=== PATIENT | male | born 1955 ===

== ENCOUNTER 2018-03-14 20:52 | Emergency (ER) | payer MEDICARE, MEDICAID ==
[2018-03-14 21:10] VITALS: TEMP 99.5
[2018-03-14] MEDS ORDERED: Sodium Chloride 0.9% 1,000 ML IV STA (21:35)
--- NOTE | 2018-03-14 21:42 | ED PDOC ---
HPI: General Adult Time Seen by Provider: 03/14/18 21:20 Chief Complaint (Nursing): ENT Problem Chief Complaint (Provider): Back and Knee pain History Per: Patient, Family (son) History/Exam Limitations: no limitations Onset/Duration Of Symptoms: Days (x 1) Current Symptoms Are (Timing): Still Present Additional Complaint(s): 62 year old male with a history of DM, HTN, UT and CVA presents to the ED for evaluation. Son is at bedside and provides history. He reports that patient has chronic back and bilateral knee pain. Son does not know the name of the medications, but reports that he took medication for pain and fell asleep this morning for a few hours. He believes that the patient took two more doses of the medication during the day as well. When the son returned in the evening, he found the patient complaining of nausea and actively heaving. Although this c onfused state is rare, the son reports a similar episodes in the past multiple times due after he takes some pain medicine which the son does not know. He has left lower extremity weakness as a deficit from the stroke. Patient currently has no medical complaints; no pain. Denies vomiting, diarrhea, abdominal pain and other complaints. PMD: Dr. Justin Past Medical History Reviewed: Historical Data, Nursing Documentation, Vital Signs Vital Signs: Last Vital Signs Temp 99.5 F 03/14/18 21:07 Pulse 114 H 03/14/18 21:07 Resp 20 03/14/18 21:07 BP 151/93 H 03/14/18 21:07 Pulse Ox 100 03/14/18 21:07 - Medical History PMH: CAD, Diabetes, HTN, Hypercholesterolemia Denies: HIV - Surgical History Surgical History: CABG, Coronary Stent Denies: Pacemaker - Family History Family History: States: Unknown Family Hx - Living Arrangements Living Arrangements: With Family - Home Medications Home Medications: Ambulatory Orders Medication Instructions Recorded Aspirin [Ecotrin] 81 mg PO DAILY 06/16/13 Atorvastatin Calcium [Lipitor] 80 mg PO HS #0 tab 11/15/14 Clopidogrel [Plavix] 75 mg PO DAILY #0 tab 11/15/14 Difluprednate [Durezol 5 ml] 1 drop RIGHTEYE QID #0 emu 11/15/14 Lisinopril 10 mg PO DAILY #0 tab 09/16/15 Lorazepam 0.5 mg PO TID PRN #0 tab 11/15/14 MetFORMIN [glucoPHAGE] 1,000 mg PO BID #0 tab 11/15/14 Metoprolol Tartrate 50 mg PO BID #0 tab 11/15/14 Naproxen 250 mg PO BID PRN #0 tab 11/15/14 Nepafenac [Ilevro] 1 drop RIGHTEYE QAM #0 dyan 11/15/14 Pregabalin [Lyrica] 200 mg PO BID #0 cap 11/15/14 Ropinirole HCl [Requip] 0.5 mg PO HS #0 tab 11/15/14 SITagliptin [Januvia] 100 mg PO DAILY #0 tab 11/15/14 Sertraline Hydrochloride 100 mg PO Q12H #0 tab 11/15/14 Zolpidem Tartrate [Ambien] 10 mg PO HS PRN #0 tab 11/15/14 traMADol [Ultram] 50 mg PO QID PRN #0 tab 11/15/14 - Allergies Allergies/Adverse Reactions: Allergies Allergy/AdvReac Type Severity Reaction Status Date / Time No Known Allergies Allergy Verified 11/13/14 17:32 Review of Systems ROS Statement: Except As Marked, All Systems Reviewed And Found Negative Gastrointestinal: Positive for: Nausea Musculoskeletal: Positive for: Back Pain, Leg Pain Neurological: Positive for: Confusion Physical Exam - Reviewed Nursing Documentation Reviewed: Yes Vital Signs Reviewed: Yes - Physical Exam Appears: Positive for: Non-toxic, No Acute Distress Head Exam: Positive for: ATRAUMATIC, NORMAL INSPECTION, NORMOCEPHALIC Skin: Positive for: Normal Color, Warm, Dry Eye Exam: Positive for: EOMI, Normal appearance, PERRL ENT: Positive for: Normal ENT Inspection. Negative for: Nasal Congestion Neck: Positive for: Normal, Painless ROM, Supple Cardiovascular/Chest: Positive for: Regular Rate, Rhythm. Negative for: Murmur Respiratory: Positive for: Normal Breath Sounds. Negative for: Respiratory Distress Gastrointestinal/Abdominal: Positive for: Normal Exam (large surgical scar present on abdomen), Soft. Negative for: Tenderness Back: Positive for: Normal Inspection. Negative for: L CVA Tenderness, R CVA Tenderness Extremity: Positive for: Other (3/5 strength in left leg). Negative for: Normal ROM, Tenderness, Pedal Edema Neurologic/Psych: Positive for: Alert, nut former II-XII, Oriented (x 3; communicating fully). Negative for: Aphasia, Facial Droop - Laboratory Results Result Diagrams: 03/14/18 21:33 03/14/18 21:33 Lab Results: no acute - ECG O2 Sat by Pulse Oximetry: 100 (RA) Pulse Ox Interpretation: Normal - Radiology X-Ray: Interpreted by Me, Viewed By Me X-Ray Interpretation: No Acute Disease - CT Scan/US ct Other Rad Studies (CT/US): Read By Radiologist Other Rad Interpretation: no acute - Progress ED Course And Treament: 2255: Stable. AAOx3. Pain free. Tolerated PO. Son states this confusion is common with him after he takes some unknown pain meds. Once the meds prieto off he is back to baseline. Currently back to baseline and comfortable going home. Son comfortable taking him home. Ambulated at baseline. Medical Decision Making Medical Decision Makin:34 Initial Plan: --CT head --Acetaminophen --Alcohol serum --Lipase --UDS --Salicylate --Troponin --Urine dip --CBC --CMP --PTT --PT --CXR --Glucose POC --NS IV --Tylenol 650 mg PO --Zofran 4 mg IV Scribe Attestation: Documented by Noelle Uiras acting as a scribe for Polo Carrington MD Provider Scribe Attestation: All medical record entries made by the Scribe were at my direction and personally dictated by me. I have reviewed the chart and agree that the record accurately reflects my personal performance of the history, physical exam, medical decision making, and the department course for this patient. I have also personally directed, reviewed, and agree with the discharge instructions and disposition. Disposition - Clinical Impression Clinical Impression: Confusion - Patient ED Disposition Is Patient to be Admitted: No Counseled Patient/Family Regarding: Studies Performed, Diagnosis, Need For Followup - Disposition Referrals: [facility] [Outside] - 03/15/18 Disposition: Routine/Home Disposition Time: 23:00 Condition: STABLE Additional Instructions: Return if not better in 3 days. Instructions: Altered Mental Status (DC) Forms: [facility] (Bruneian) Print Language: CANADIAN
[2018-03-14 22:28] LABS: BASO # 0.1 K/uL (0.0-0.2); EOS # 0.1 K/uL (0.0-0.7); EOS % 1.9 % (0.0-4.0); LYMPH # 1.6 K/uL (1.0-4.3); LYMPH % 26.9 % (20.0-40.0); MEAN CELL VOLUME 89.3 fl (80.0-94.0); MEAN CORPUSCULAR HGB CONC 33.6 g/dL (33.0-37.0); MEAN PLATELET VOLUME 10.1 fl (7.2-11.7); MONO # 0.5 K/uL (0.0-0.8); MONO % 8.9 % (0.0-10.0); NEUT # 3.6 K/uL (1.8-7.0); NEUT % 61.3 % (50.0-75.0); RBC 4.65 Mil/uL (4.40-5.90); RED CELL DISTRIBUTION WIDTH 15.4 % (11.5-14.5); WHITE BLOOD COUNT 5.8 K/uL (4.8-10.8)
[2018-03-14 22:35] LABS: INR 1.1; PROTHROMBIN TIME 12.9 Seconds (9.8-13.1)
[2018-03-14 22:37] LABS: ACETAMINOPHEN < 10.0 ug/ml (10.0-30.0); SALICYLATE < 1.0 mg/dl
[2018-03-14 22:39] LABS: ALB/GLOB RATIO 1.4 (1.0-2.1); ALBUMIN 4.8 g/dL (3.5-5.0); ALT/SGPT 39 U/L (21-72); AST/SGOT 33 U/L (17-59); BLOOD UREA NITROGEN 15 mg/dl (9-20); CALCIUM 9.7 mg/dL (8.4-10.2); GFR NON-AFRICAN AMERICAN > 60; LIPASE 95 U/L (23-300)
[2018-03-14 22:45] VITALS: BP 127/83; PULSE 100; RESP 18
[2018-03-14 22:53] VITALS: O2SAT 100
[2018-03-14 23:14] LABS: BARBITURATES, UR NEGATIVE (NEGATIVE); BENZODIAZEPINES, UR POSITIVE (NEGATIVE); OPIATES, UR NEGATIVE (NEGATIVE); PHENCYCLIDINE, UR NEGATIVE (NEGATIVE)
--- NOTE | 2018-03-15 07:23 | CARD ---
APPROVED REPORT Date of service: 03/14/2018 EKG Measurement Heart [id number] <Conclusion> Sinus tachycardia Anteroseptal infarct, age undetermined Abnormal ECG
--- NOTE | 2018-03-15 09:39 | RAD ---
Date of service: 03/14/2018 HISTORY: back pain COMPARISON: Portable chest 11/13/2014. FINDINGS: LUNGS: No acute pulmonary disease. Trace fibrotic changes seen at the inferior left lung zone laterally with limited pleural thickening reiterated. PLEURA: No significant pleural effusion identified, no pneumothorax apparent. CARDIOVASCULAR: Calcific atherosclerotic changes are seen related to the thoracic aorta. Normal cardiac size. No pulmonary vascular congestion. OSSEOUS STRUCTURES: No significant abnormalities. VISUALIZED UPPER ABDOMEN: Stable minimal elevation left hemidiaphragm reiterated. OTHER FINDINGS: None. IMPRESSION: No interval acute cardiopulmonary disease appreciated.
--- NOTE | 2018-03-15 10:56 | CT ---
Date of service: 03/14/2018 PROCEDURE: CT HEAD WITHOUT CONTRAST. HISTORY: Headache COMPARISON: 11/13/2014. TECHNIQUE: Axial computed tomography images were obtained through the head/brain without intravenous contrast. Radiation dose: Total exam DLP = 767.45 mGy-cm. This CT exam was performed using one or more of the following dose reduction techniques: Automated exposure control, adjustment of the mA and/or kV according to patient size, and/or use of iterative reconstruction technique. FINDINGS: HEMORRHAGE: No intracranial hemorrhage. BRAIN: There are old lacunar infarctions in the right basal ganglia and thalamus.. There is no mass, mass effect or abnormal extra-axial fluid collection. There is no territorial infarction. The midline sagittal structures are normal. VENTRICLES: There is mild age-related global parenchymal volume loss and proportionate enlargement of the ventricles and cortical sulci. CALVARIUM: There is no calvarial fracture or extracranial soft tissue swelling. PARANASAL SINUSES: Predominantly clear. MASTOID AIR CELLS: Predominantly clear. OTHER FINDINGS: None. IMPRESSION: No acute intracranial abnormality. Old lacunar infarctions in the right basal ganglia and thalamus. Mild age-related global parenchymal volume loss. A preliminary report was provided by [employer].
== END 2018-03-14 23:18 | disposition home or self-care (01) ==
LOC: H.ER 20:52
DX: R41.82 Altered mental status, unspecified (principal)
CPT/HCPCS: 70450; 71045; 80053; 82948; 83690; 84484; 85025; 85610; 85730; 93005; 96360; 99284; G0480; J2405; J7030